=== PATIENT | male | born 1975 | race Asian ===

== ENCOUNTER 2024-06-06 00:40 | Inpatient (IN) | payer OTHER ==
[~2024-06-06] VITALS: Ht 172.7 cm; Wt 64.9 kg
[2024-06-06] MEDS ORDERED: MORPHINE SULFATE 4 MG/1 ML DISP.SYRIN ONE (01:06)
[2024-06-06 01:13] LABS: BASOPHILS % (AUTO) 0.2 % (0.0-2.0); EOSINOPHILS # (AUTO) 0.6 K/uL (0.0-0.7); EOSINOPHILS % (AUTO) 7.1 % (0.0-7.0); HEMATOCRIT 36.3 % (36.7-47.1); LYMPHOCYTES % (AUTO) 23.2 % (20.5-51.5); MEAN CORPUSCULAR HGB CONC 33 g/dL (32.5-36.3); MEAN CORPUSCULAR VOLUME 102.3 fL (73.0-96.2); MONOCYTES # (AUTO) 0.9 K/uL (0.1-1.30); MONOCYTES % (AUTO) 10.6 % (0.0-11.0); NEUTROPHILS # (AUTO) 5.2 K/uL (1.8-8.9); NEUTROPHILS % (AUTO) 58.9 % (38.5-71.5); PLATELET COUNT (AUTO) 193 K/uL (152-348); RED BLOOD CELL COUNT(AUTO) 3.55 MIL/uL (4.06-5.63); RED CELL DISTRIBUTION WIDTH 13.9 % (12.1-16.2); WHITE BLOOD COUNT (AUTO) 8.8 K/uL (3.6-10.2)
[2024-06-06 01:14] LABS: DIFFERENTIAL COMMENT 1
[2024-06-06 01:27] LABS: CALCIUM 9.5 mg/dL (8.5-10.1); POTASSIUM 5.3 mmol/L (3.5-5.1)
[2024-06-06 01:28] LABS: CREATININE 14.2 mg/dL (0.6-1.3)
[2024-06-06] MEDS: MORPHINE SULFATE 2 MG/1 ML DISP.SYRIN IV ONE (01:29)
[2024-06-06 01:32] LABS: BILIRUBIN,DIRECT 0.1 mg/dL (0.0-0.2); BILIRUBIN,TOTAL 0.6 mg/dL (0.2-1.0); TOTAL PROTEIN, SERUM 8.9 g/dL (6.4-8.2)
[2024-06-06] MEDS ORDERED: HYDROMORPHONE 1 MG/1 ML DISP.SYRIN ONE (01:49)
[2024-06-06] MEDS: HYDROMORPHONE 1 MG/1 ML DISP.SYRIN IV ONE (01:58)
[2024-06-06] MEDS: IV NORMAL SALINE 500 ML BAG IV ONE (01:58)
[2024-06-06] MEDS ORDERED: ATEN100T PO (03:49)
[2024-06-06] MEDS ORDERED: SUCR500T PO (03:49)
[2024-06-06] MEDS ORDERED: AMLO10TA59 PO (03:49)
[2024-06-06] MEDS ORDERED: LOSA100T31 PO (03:49)
[2024-06-06] MEDS ORDERED: MAGNESIUM HYDROXIDE 30 ML LIQUID UDC PO PRN (04:30)
[2024-06-06] MEDS ORDERED: HYDROMORPHONE 1 MG/1 ML DISP.SYRIN IV PRN (04:30)
[2024-06-06] MEDS ORDERED: ACETAMINOPHEN 325 MG TABLET PO PRN (04:30)
[2024-06-06] MEDS ORDERED: ONDANSETRON 4 MG/2 ML VIAL IV PRN (04:30)
[2024-06-06 07:14] VITALS: BP 147/87; TEMP 97.6; O2SAT 99
[2024-06-06 07:46] LABS: MAGNESIUM 2.2 mg/dL (1.8-2.4); PHOSPHOROUS 4.4 mg/dL (2.5-4.9)
[2024-06-06 08:00] VITALS: BP 135/87; TEMP 97.7; O2SAT 97
[2024-06-06] MEDS: PANTOPRAZOLE SODIUM 40 MG VIAL IV SCH (08:48)
[2024-06-06] MEDS ORDERED: LOSA50TA39 PO (10:01)
[2024-06-06] MEDS ORDERED: LABE300T2 PO (10:02)
== END 2024-06-06 11:10 | disposition left against medical advice (07) | DRG 388 ==
LOC: ER 00:40 → UNDOADMIN 04:46 → TELE3 04:46 → MEDSURG3 06:17
PROVIDERS: ATTEND Nurse Practitioner Acute Care
DX: K56.609 Unspecified intestinal obstruction, unspecified as to partial versus complete obstruction (principal); N18.6 End stage renal disease; I12.0 Hypertensive chronic kidney disease with stage 5 chronic kidney disease or end stage renal disease; T86.12 Kidney transplant failure; N13.30 Unspecified hydronephrosis; L02.31 Cutaneous abscess of buttock; K56.2 Volvulus; Z53.29 Procedure and treatment not carried out because of patient's decision for other reasons; Z99.2 Dependence on renal dialysis; N40.0 Benign prostatic hyperplasia without lower urinary tract symptoms; N30.90 Cystitis, unspecified without hematuria; L98.9 Disorder of the skin and subcutaneous tissue, unspecified; Z79.899 Other long term (current) drug therapy
CPT/HCPCS: 36415; 83605; 83690; 83735; 84100; 85025; 85730; 90937; A4606; A4663; G0378; J1171; J2270; J2470; J7040